=== PATIENT | male | born 1950 | race Two or more races ===

== ENCOUNTER 2019-01-13 16:15 | Emergency (ER) | payer OTHER ==
[~2019-01-13] VITALS: Ht 175.3 cm; Wt 65.0 kg
[2019-01-13] MEDS ORDERED: LISI10TA5 PO (16:35)
[2019-01-13] MEDS ORDERED: SODIUM CHLORIDE 0.9% 1,000 ML IV ONE (17:27)
[2019-01-13] MEDS ORDERED: ONDANSETRON HCL 4MG/2ML INJ IV STA (17:27)
[2019-01-13] MEDS ORDERED: MECLIZINE 25MG TABLET PO ONE (17:30)
[2019-01-13 18:17] LABS: BASOPHILS % 0.3 % (0.0-2.0); EOSINOPHILS % 0.7 % (0.0-5.0); HEMOGLOBIN. 15.7 g/dL (14.0-18.0); LYMPHOCYTES % 13.1 % (20.0-50.0); MEAN CORPUSCULAR HEMOGLOBIN 31.2 pg (28.0-32.0); MEAN CORPUSCULAR VOLUME 93.1 fL (80.0-94.0); MEAN PLATELET VOLUME 8.7 fl (7.4-10.4); MONOCYTES % 5.8 % (2.0-8.0); NEUTROPHILS % 80.1 % (40.0-76.0); PLATELET 208 x1000/uL (130-400); RED BLOOD CELL COUNT 5.04 mill/uL (4.7-6.1); RED CELL DISTRIBUTION WIDTH 13.4 % (11.6-14.6)
[2019-01-13 18:21] LABS: CHLORIDE 109 mEq/L (98-107)
[2019-01-13 18:25] LABS: ETHANOL BLOOD < 10 mg/dL
[2019-01-13 21:30] VITALS: BP 124/81
== END 2019-01-13 21:30 | disposition home or self-care (01) ==
LOC: ER 16:15
DX: E86.0 Dehydration (principal); R42 Dizziness and giddiness; R11.2 Nausea with vomiting, unspecified; I10 Essential (primary) hypertension
CPT/HCPCS: 36415; 70450; 71045; 80053; 84484; 85025; 87186; 93005; 96361; 96374; 99284; J2405; J7030; J8597